=== PATIENT | female | born 1960 | race African-American/Black ===

== ENCOUNTER 2021-06-16 18:33 | Inpatient (IN) | payer BC, OTHER ==
[~2021-06-16] VITALS: Ht 165.1 cm; Wt 64.4 kg
[2021-06-16] MEDS ORDERED: SODIUM CHLORIDE 0.9% 1,000 ML IV ONE (22:00)
[2021-06-16 22:23] LABS: BASOPHILS % 0.4 % (0.0-2.0); EOSINOPHILS % 1.5 % (0.0-5.0); HEMATOCRIT. 34.1 % (36.0-48.0); HEMOGLOBIN. 11.3 g/dL (12.0-16.0); LYMPHOCYTES % 50.3 % (20.0-50.0); MEAN CORPUSCULAR HEMOGLOBIN 29.6 pg (28.0-32.0); MEAN CORPUSCULAR VOLUME 89.1 fL (81.0-99.0); MEAN PLATELET VOLUME 7.9 fl (7.4-10.4); MONOCYTES % 8.1 % (2.0-8.0); NEUTROPHILS % 39.7 % (40.0-76.0); PLATELET 209 x1000/uL (130-400); RED BLOOD CELL COUNT 3.83 mill/uL (4.2-5.4); RED CELL DISTRIBUTION WIDTH 14.1 % (11.6-14.6)
[2021-06-16 22:31] LABS: CHLORIDE 108 mEq/L (98-107)
[2021-06-17] MEDS ORDERED: MECLIZINE 25MG TABLET PO ONE (05:30)
[2021-06-17] MEDS ORDERED: DOCUSATE SODIUM 100MG CAPSULE PO PRN (06:00)
[2021-06-17] MEDS ORDERED: ONDANSETRON HCL 4MG/2ML INJ IV PRN (06:00)
[2021-06-17] MEDS ORDERED: MECLIZINE 25MG TABLET PO PRN (06:00)
[2021-06-17] MEDS ORDERED: ACETAMINOPHEN 325MG TABLET PO PRN (06:00)
[2021-06-17] MEDS ORDERED: ZOLPIDEM TARTRATE 5MG TABLET PO PRN (06:00)
[2021-06-17] MEDS: ENOXAPARIN 40MG/0.4ML SYR SUBCUT SCH (11:16)
[2021-06-18 00:40] VITALS: BP 146/83
[2021-06-18] MEDS ORDERED: *PATIENT'S OWN MEDICATION STORAGE XX SCH (02:30)
[2021-06-18 04:00] VITALS: BP 124/73
[2021-06-18] MEDS ORDERED: CLON-457 PO (04:03)
[2021-06-18] MEDS ORDERED: ATEN-42 MT (04:03)
[2021-06-18] MEDS ORDERED: HYDR-4009 MT (04:03)
[2021-06-18] MEDS ORDERED: MULT-1146 MT (04:03)
[2021-06-18 08:06] VITALS: BP 120/70
[2021-06-18] MEDS: ENOXAPARIN 40MG/0.4ML SYR SUBCUT SCH (08:28)
[2021-06-18 09:52] VITALS: BP 120/70
== END 2021-06-18 11:30 | disposition home or self-care (01) | DRG 74 ==
LOC: ER 18:33 → MICUSO 06-17 05:17 → 8WST 06-17 22:03 → 5WST 06-18 00:01 → 8WST 06-18 00:02
PROVIDERS: ADMIT Internal Medicine Pulmonary Disease; ATTEND Internal Medicine Pulmonary Disease
DX: G90.8 Other disorders of autonomic nervous system (principal); E11.9 Type 2 diabetes mellitus without complications; I10 Essential (primary) hypertension; R27.0 Ataxia, unspecified; D64.9 Anemia, unspecified; E87.8 Other disorders of electrolyte and fluid balance, not elsewhere classified; Z20.822 Contact with and (suspected) exposure to COVID-19
CPT/HCPCS: 36415; 70551; 71045; 80053; 82962; 84484; 85025; 87426; 93005; 99285; J1650; J7030; J8597